=== PATIENT | male | born 2000 | race Caucasian/White ===

== ENCOUNTER 2021-12-14 22:14 | Emergency (ER) | payer OTHER ==
[~2021-12-14] VITALS: Ht 180.3 cm; Wt 67.0 kg
== END 2021-12-14 23:42 | disposition home or self-care (01) ==
LOC: ED 22:14
DX: S06.0X9A Concussion with loss of consciousness of unspecified duration, initial encounter (principal); S50.312A Abrasion of left elbow, initial encounter; S50.311A Abrasion of right elbow, initial encounter; S80.212A Abrasion, left knee, initial encounter; S80.211A Abrasion, right knee, initial encounter; W22.8XXA Striking against or struck by other objects, initial encounter
CPT/HCPCS: 70450; 72125; 99284-25

== ENCOUNTER 2022-05-17 15:02 | Emergency (ER) | payer OTHER ==
[~2022-05-17] VITALS: Ht 180.3 cm; Wt 66.7 kg
[2022-05-17] MEDS ORDERED: BUSPIRONE HCL10 MG PO (15:12)
[2022-05-17] MEDS ORDERED: HYDROCODON-ACE1 EA11 PO (17:01)
== END 2022-05-17 17:48 | disposition home or self-care (01) ==
LOC: ED 15:02
DX: S32.019A Unspecified fracture of first lumbar vertebra, initial encounter for closed fracture (principal); S32.029A Unspecified fracture of second lumbar vertebra, initial encounter for closed fracture; W19.XXXA Unspecified fall, initial encounter
CPT/HCPCS: 72100; 72131; 99284-25; A9270